=== PATIENT | male | born 1995 | race Caucasian/White ===

== ENCOUNTER 2020-08-09 09:11 | Emergency (ER) | payer SELFPAY ==
[2020-08-09 09:13] VITALS: BP 130/81; PULSE 134; RESP 17; TEMP 36.9; O2SAT 99; BMI 21.9
--- NOTE | 2020-08-09 09:26 | US_ITS ---
STUDY: SCROTUM ULTRASOUND REASON FOR EXAM: Male, 24 years old. RIGHT TESTICLE PAIN AND SWELLING X 1 DAY TECHNIQUE: Ultrasound evaluation of the scrotum was performed with color Doppler and static fuentes-scale imaging. COMPARISON: None. FINDINGS: RIGHT TESTICLE INTRATESTICULAR: There is a normal size of the right testicle. The right testicle measures 4.5 cm x 3.5 cm x 3 cm. There is a homogenous echotexture. There is normal arterial and normal venous vascularity. There is no demonstrated right testicular mass or cyst. EXTRATESTICULAR: The epididymis is normal in size. The epididymis head is enlarged and measures 1.1 cm x 1.87 x 1.8 cm. There is normal vascularity of the epididymis. There is no demonstrated epididymal cystic structure. There is a small hydrocele. There are prominent extratesticular veins consistent with a varicocele. There is no demonstrated extratesticular mass or cyst. LEFT TESTICLE INTRATESTICULAR: There is a normal size of the left testicle. The left testicle measures 4.4 cm x 3.1 cm x 2.5 cm. There is a homogenous echotexture. There is normal arterial and normal venous vascularity. There is no demonstrated left testicular mass or cyst. EXTRATESTICULAR: The epididymis is normal in size. The epididymis head measures 1 cm x 1.2 cm x 1.1 cm. There is normal vascularity of the epididymis. There is a well-defined cystic structure within the epididymis, without internal echoes, consistent with an epididymal cyst. This measures 3 mm x 4 mm x 2 mm. There is no demonstrated hydrocele. There are prominent extratesticular veins consistent with a varicocele. There is no demonstrated extratesticular mass or cyst. US/Testicular with Arterial Flow IMPRESSION: Mildly enlarged right epididymis. Small right hydrocele. Small bilateral varicoceles. Electronically Signed: Karthik Cortés MD at 10:32 EST , Service support ,
[2020-08-09] MEDS: Ibuprofen 600 MG Tablet PO (09:31)
--- NOTE | 2020-08-09 09:31 | ED.DCSUM_ITS ---
- ER Visit Summary Date of Service: 08/09/20 Chief Complaint: Right testicular pain and swelling History of Present Illness: The patient is a 24 M with significant past medical or surgical history. Patient states he went to bed fine last night he woke up this morning with right sided testicular pain and swelling. Denies any dysuria. No hematuria. He is sexually active. Denies any history of STD. Denies any penile discharge. No prior hernia. No prior surgery. Denies any symptoms, fever or chills prior to this morning. Physical Examination: Young male no acute distress vital signs stable afebrile. HEENT exam unremarkable. Lungs are clear. Heart regular rhythm. Abdomen soft non tender normal bowel sounds no peritoneal signs. External exam shows right hemiscrotal tenderness and swelling. No mass. No obvious torsion. No lesions. No cellulitis. External canal does not show any obvious signs of a hernia. There are no penile lesions. He is a circumcised male. Moving all 4 extremities. Back nontender. Neurologically is awake and alert. Test Results: Ultrasound of his right testicle shows plant enlarged right epididymal head. Otherwise normal vascularity. Small right hydrocele.. Small right varicocele. Left testicle was unremarkable. Repeat exam no change. Emergency Department Course and Treatment: Patient treated with Motrin. Clinically I think this is a orchitis or epididymal orchitis. He will be treated with doxycycline p.o. twice daily for 10 days. And IM Rocephin here. Treatment Plan: Doxy twice daily for 10 days. Tylenol Motrin for pain. Follow-up with Dr. Rikki Flaherty of urology return if feeling worse. Disposition: Discharge Impression: Acute right scrotal pain and swelling secondary to sided epididymitis This note was generated with [id number] dictation software. It may contain incorrect words, spelling, and punctuation that were not noted in review of the chart prior to signing ED Disposition - Plan for ED Patient: Disposition: Home or Assisted Living Instructions: ED Orchitis Prescriptions: Doxycycline 100 mg PO BID #20 cap Prescription Printed Referrals: Chandra Flaherty MD [STAFF PHYSICIAN] - 3-5 Days Additional Instructions: Tylenol and Motrin for pain. Doxycycline which is the antibiotic 1 pill twice a day for the next 10 days. Call and set up an appointment and follow-up with a local urologist Dr. Rikki Flaherty
--- NOTE | 2020-08-09 09:34 | ED.DEP ---
ED Disposition - Plan for ED Patient: Disposition: Home or Assisted Living Instructions: ED Orchitis Prescriptions: Doxycycline 100 mg PO BID #20 cap Prescription Printed Referrals: Chandra Flaherty MD [STAFF PHYSICIAN] - 3-5 Days Additional Instructions: Tylenol and Motrin for pain. Doxycycline which is the antibiotic 1 pill twice a day for the next 10 days. Call and set up an appointment and follow-up with a local urologist Dr. Rikki Flaherty
[2020-08-09] MEDS: Ceftriaxone 500 MG Vial 250 MG IM (11:59)
[2020-08-09 12:34] VITALS: PULSE 78; RESP 16; O2SAT 98
== END 2020-08-09 12:36 | disposition home or self-care (01) ==
LOC: ED 10:26
PROVIDERS: Emergency Provider Emergency Medicine
DX: N45.1 Epididymitis (principal); N50.811 Right testicular pain; F17.200 Nicotine dependence, unspecified, uncomplicated
CPT/HCPCS: 76870; 93976; 96372; 99283